=== PATIENT | female | born 2005 | race Two or more races ===

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

== ENCOUNTER 2024-12-27 14:40 | Emergency (ER) | payer MEDICAID ==
[~2024-12-27] VITALS: Ht 165.1 cm; Wt 51.3 kg
[2024-12-27 15:23] LABS: IMMATURE GRANULOCYTE ABSOLUTE 0.09 K/uL (0-1); NUCLEATED RED BLOOD CELLS 0.0 % (0.0-0.19); PLATELET COUNT (AUTO) 411 K/uL (130-400); RED BLOOD CELL COUNT(AUTO) 4.78 MIL/uL (4.00-5.50); RED CELL DISTRIBUTION WIDTH 13.8 % (11.0-15.5); WHITE BLOOD COUNT (AUTO) 13.3 K/uL (4.8-10.8)
[2024-12-27 15:37] LABS: CREATININE 0.9 mg/dL (0.5-1.0); GLOMERULAR FILTR. RATE CALC 94.0 mL/min (>90); GLUCOSE,RANDOM 102.0 mg/dL (70-105); SODIUM SERUM 143.0 mmol/L (136-145); UREA NITROGEN, BLOOD 16.0 mg/dL (7-18)
[2024-12-27] MEDS: 0.9%NACL 1000ML 1,000 ML IV ONE (15:39)
[2024-12-27 15:48] LABS: ASPARTATE AMINOTRANSFERASE 25.0 U/L (10-37); CREATINE KINASE, TOTAL 219.0 U/L (21-232); HCG,QUANTITATIVE 0.0 mIU/mL (0-5); TOTAL PROTEIN, SERUM 9.2 g/dL (6.0-8.3)
--- NOTE | 2024-12-27 15:50 | ERN ---
General Chief Complaint: Abdominal Pain Stated Complaint: ABDOMINAL PAIN Time Seen by MD: 14:45 Source: patient, family History of Present Illness Initial Comments Patient is a 19-year-old female coming in complaining of abdominal pain. Per patient the pain has been ongoing all day today. She states that the pain is present in the epigastric and right upper quadrant area. No fever no chills. Patient is a also complaining of nauseousness and vomiting on several occasions Allergies: Coded Allergies: No Known Drug Allergies (Unverified Allergy, Unknown, 12/27/24) Past Medical History Past Medical History: No Pertinent History Past Surgical History: None ROS Dictation CONSTITUTIONAL: No chills, no fever, no weakness, no diaphoresis, no malaise. HEAD/FACE: No signs of trauma. EENT: No eye pain, no blurred vision, no tearing, no double vision, no ear pain, no ear discharge, no nose pain, no nasal congestion, no throat pain, no throat swelling, no mouth pain. RESPIRATORY: No cough, no orthopnea, no SOB, no stridor, no wheezing. CARDIOVASCULAR: No chest pain, no edema, no palpitations, no syncope. GASTROINTESTINAL/ABDOMINAL: abdominal pain, no constipation, no diarrhea, no nausea, no vomiting. GENITOURINARY: No abnormal discharge, no dysuria, no frequent urination, no hematuria. No complaints of pain in the genitals. MUSCULOSKELETAL: No back pain, no gout, no joint pain, no joint swelling, no muscle pain, no muscle stiffness, no neck pain. INTEGUMENTARY: No change in color, no change in hair/nails, no dryness, no lesion, no lumps, no rash. NEUROLOGICAL/PSYCH: No anxiety, not depressed, no emotional problem, no headache, no numbness, no pre-existing deficit, no history of seizures, no tremors, no weakness. HEMATOLOGIC/LYMPHATIC: Not anemic, no history of blood clots, no apparent bleeding, no bruising, glands not swollen. All Systems Negative, Except as Noted. Physical Exam Physical Exam Dictation VITAL SIGNS: Reviewed. GENERAL APPEARANCE: Alert, oriented x3, no acute distress, obese. HEAD AND FACE: Non-traumatic. EYES: PERRL, pink conjunctivas, eyelid no trauma, anterior chamber clear. EARS: Pinnas intact and no signs of trauma or erythema. Ear canals clear and no discharge. TMs no erythema. NOSE: No discharge, no bleeding. OROPHARYNX: Mouth normal, teeth no caries, tongue pink. Pharynx clear, no erythema. Tonsils no exudates, no abscesses noted. Mucous membrane moist. NECK: Supple, non-tender, no thyromegaly, no masses, no JVD, no bruits. BREAST: Deferred. CHEST: No tenderness, no crepitus, no paradoxical movement, no retractions. LUNGS: Clear, well-ventilated, symmetric, no rales, no wheezing, no rhonchi, no stridor, good breath sounds bilaterally. HEART: Regular rate, regular rhythm, no murmur, no gallops. VASCULAR: No peripheral edema. ABDOMEN: Soft, positive bowel sounds, nondistended, no guarding, epigastric pain reproducible on palpation, no rebound, no masses no hepatomegaly, no splenomegaly, no Snow's sign, no hernias. RECTAL: Deferred. GENITAL: Deferred. NEUROLOGICAL: Normal speech, gross motor function intact, gross sensory function intact. MUSCULOSKELETAL: Neck nontender, full range of motion, back nontender, full range of motion. EXTREMITIES: Nontender, full range of motion. SKIN: Color pink, dry, no turgor, no rash, no lacerations, no abrasions, no contusions. LYMPHATICS: Deferred. General Appearance: (-) other documentation Results Laboratory and Microbiology Lab and Micro Result Laboratory Tests Test 12/27/24 15:05 12/27/24 15:29 White Blood Count 13.3 K/uL (4.8-10.8) H Red Blood Count 4.78 MIL/uL (4.00-5.50) Hemoglobin 14.5 g/dL (12.0-16.0) Hematocrit 43.1 % (36-48) Mean Corpuscular Volume 90.2 fL (80-100) Mean Corpuscular Hemoglobin 30.3 pg (27.0-33.0) Mean Corpuscular Hemoglobin Concent 33.6 g/dL (32.0-36.0) Red Cell Distribution Width 13.8 % (11.0-15.5) Platelet Count 411 K/uL (130-400) H Mean Platelet Volume 10.1 fL (7.5-10.5) Immature Granulocyte % (Auto) 0.7 % (0-1) Neutrophils (%) (Auto) 91.3 % (40.0-77.0) H Lymphocytes (%) (Auto) 6.0 % (21.0-51.0) L Monocytes (%) (Auto) 1.2 % (3.0-13.0) L Eosinophils (%) (Auto) 0.0 % (0.0-8.0) Basophils (%) (Auto) 0.8 % (0.0-5.0) Neutrophils # (Auto) 12.2 K/uL (1.8-7.7) H Lymphocytes # (Auto) 0.8 K/uL (1.0-4.8) L Monocytes # (Auto) 0.2 K/uL (0.1-1.0) Eosinophils # (Auto) 0.00 K/uL (0.00-0.70) Basophils # (Auto) 0.11 K/uL (0.00-0.20) Absolute Immature Granulocyte (auto 0.09 K/uL (0-1) Nucleated Red Blood Cells 0.0 % (0.0-0.19) White Cell Morphology Comment See comments Sodium Level 143 mmol/L (136-145) Potassium Level 4.1 mmol/L (3.5-5.1) Chloride Level 104 mmol/L (101-111) Carbon Dioxide Level 26 mmol/L (21-32) Blood Urea Nitrogen 16 mg/dL (7-18) Creatinine 0.9 mg/dL (0.5-1.0) Glomerular Filtration Rate Calc 94 mL/min (>90) Random Glucose 102 mg/dL (70-105) Total Calcium 9.7 mg/dL (8.5-10.1) Total Bilirubin 0.3 mg/dL (0.2-1.0) Aspartate Amino Transf (AST/SGOT) 25 U/L (10-37) Alanine Aminotransferase (ALT/SGPT) 42 U/L (12-78) Alkaline Phosphatase 74 U/L (50-136) Total Creatine Kinase 219 U/L (21-232) Total Protein 9.2 g/dL (6.0-8.3) H Albumin 4.7 g/dL (3.5-5.0) Lipase 30 U/L (16-77) Human Chorionic Gonadotropin, Quant 0 mIU/mL (0-5) Urine Color YELLOW (YELLOW) Urine Appearance CLOUDY (CLEAR) H Urine pH 5.5 (5.0-8.0) Urine Specific [place] 1.028 (1.001-1.031) Urine Protein 20 mg/dL (NEGATIVE) H Urine Glucose (UA) NEGATIVE mg/dL (NEGATIVE) Urine Ketones 10 mg/dL (NEGATIVE) H Urine Occult Blood +- (TRACE) (NEGATIVE) H Urine Nitrate NEGATIVE (NEGATIVE) Urine Bilirubin NEGATIVE mg/dL (NEGATIVE) Urine Urobilinogen 0.2 mg/dL (0.2-1.0) Urine Leukocyte Esterase NEGATIVE Justo/uL Urine RBC 2-5 /HPF (0-1) H Urine WBC 6-10 /HPF (0-1) H Urine Squamous Epithelial Cells FEW /HPF (0-2) Urine Other Crystals (Auto) 10 /HPF (None Seen) Urine Amorphous Crystals (Auto) RARE /LPF (None Seen) Urine Bacteria RARE /HPF (None Seen) Urine Other Casts 1 /LPF (None Seen) Urine Opiates Screen NEGATIVE (NEGATIVE) Urine Barbiturates Screen NEGATIVE (NEGATIVE) Urine Phencyclidine Screen NEGATIVE (NEGATIVE) Urine Amphetamines Screen POSITIVE (NEGATIVE) H Urine Benzodiazepines Screen NEGATIVE (NEGATIVE) Urine Cocaine Screen NEGATIVE (NEGATIVE) Urine Marijuana (THC) Screen POSITIVE (NEGATIVE) H Labs Reviewed?: Yes EKG/XRAY/US/CT/MRI X-RAY Comment CHEST X-RAY-NAD MDM MDM: Differential diagnosis: POLYSUBSTANCE ABUSE, GASTROENTERITIS, GASTRITIS Rationale: Tests considered and ordered secondary to shared decision making include: Previous outside records reviewed: Old ER visits. Risk of complication and/or morbidity or mortality of patient management: None Medications-Per medication reconciliation Need for hospitalization: Patient does not meet criteria for hospitalization. Need for emergency major/minor surgery: No PATIENT IS A 19-YEAR-OLD FEMALE COMING IN COMPLAINING OF ABDOMINAL PAIN AND NAUSEA AND VOMITING. LABORATORY WORKUP POSITIVE FOR POLYSUBSTANCE. PATIENT ALSO STATES THAT SHE HAD WAS VOMITING AND HAS SOME THROAT DISCOMFORT. EAT X-RAY WAS PERFORMED TO RULE OUT ANY TRAUMA. NO ACUTE FINDINGS WERE PRESENT. PATIENT WAS GIVEN A GI COCKTAIL STATES HER SYMPTOMS HAVE IMPROVED. PATIENT WILL BE DISCHARGED IN STABLE CONDITION WITH A DIAGNOSIS OF POLYSUBSTANCE ABUSE AND GASTRITIS. ED Course Orders Procedure Category Date Status Time Cbc With Differential LAB 12/27/24 Complete 14:46 Comprehensive LAB 12/27/24 Complete Metabolic Panel 14:46 Hcg,Quantitative LAB 12/27/24 Complete 14:46 Urinalysis Profile LAB 12/27/24 Complete 14:46 0.9%Nacl 1000ml (Ns PHA 12/27/24 Complete 1000ml) 15:00 Ondansetron 4mg Inj PHA 12/27/24 Complete (Zofran 4mg Inj) 15:00 Pantoprazole 40mg Inj PHA 12/27/24 Complete (Protonix 40mg Inj 15:00 Creatine Kinase, Total LAB 12/27/24 Complete 14:46 Lipase LAB 12/27/24 Complete 14:46 Drug Screen Urine LAB 12/27/24 Complete 16:35 Culture Urine PARKER 12/27/24 In Process 16:43 Chest 1vw RAD 12/27/24 Logged 17:36 Lidocaine Hcl 2% PHA 12/27/24 In Process Viscous (Lidocaine Hcl 18:00 Mag/Alum/Simeth 30ml PHA 12/27/24 In Process (Maalox Plus 30ml) 18:00 Current Medications Medications (Trade) Dose Ordered Sig/Tona Route PRN Reason Start Time Stop Time Status Last Admin Dose Admin Al Hydroxide/Mg Hydroxide (MAALox PLUS 30ML) 30 ml ONCE ONCE PO 12/27/24 18:00 12/27/24 18:01 12/27/24 17:52 Lidocaine HCl (Lidocaine HCl 2% Viscous) 10 ml ONCE ONCE PO 12/27/24 18:00 12/27/24 18:01 12/27/24 17:52 Ondansetron HCl (zoFRAN 4MG INJ) 4 mg ONCE ONCE IVP 12/27/24 15:00 12/27/24 15:01 DC 12/27/24 15:39 Pantoprazole Sodium (PROTonix 40MG INJ) 40 mg ONCE ONCE IVP 12/27/24 15:00 12/27/24 15:01 DC 12/27/24 15:39 Sodium Chloride 1,000 ml @ 0 mls/hr ONCE ONCE IV 12/27/24 15:00 12/27/24 15:01 DC 12/27/24 15:39 Vital Signs Date Time Temp Pulse Resp B/P (MAP) Pulse Ox O2 Delivery O2 Flow Rate FiO2 12/27/24 14:44 98.4 88 16 111/69 99 Room Air* 0 21 12/27/24 14:42 98.4 88 16 111/69 99 0 DX & DISP Disposition: Discharge Departure Impression: Primary Impression: Polysubstance abuse Additional Impression: Gastroenteritis Condition: Stable Scripts Pantoprazole Sodium (Protonix) 40 Mg Ectab 1 TAB PO DAILY for 30 Days, #30 TAB 0 Refills Prov: ZULAY CHRISTIE MD 12/27/24 Additional Instructions: FOLLOW-UP WITH PRIMARY CARE PROVIDER IN 1 TO 2 DAYS. TAKE MEDICATIONS DIRECTED HERE IN THE EMERGENCY ROOM. OKAY TO CONTINUE HOME MEDICATIONS UNLESS OTHERWISE DISCUSSED DURING YOUR VISIT IN THE EMERGENCY ROOM TODAY. RETURN TO YOUR NEAREST EMERGENCY ROOM IF SYMPTOMS WORSEN OR IF THERE IS NO IMPROVEMENT. CALL 911 IF YOU NEED IMMEDIATE ASSISTANCE. TAKE TYLENOL [id number] NEEDED AND IF NO CONTRAINDICATIONS ARE PRESENT. INCREASE ORAL HYDRATION. A WOUND CULTURE OR URINE CULTURE WAS ORDERED HERE IN THE EMERGENCY ROOM DEPARTMENT PLEASE FOLLOW-UP WITH PRIMARY CARE PROVIDER AND ADVISE THEM TO GET REPORTS FROM OUR FACILITY. IF YOU HAD ANY CHARITO WRAP/SPLINTS THAT WERE APPLIED HERE, PLEASE DO NOT REMOVE THEM UNTIL YOU SEE YOUR PRIMARY CARE OR SPECIALTY. REFERRALS: Referrals: SARA WOODY MD (PCP) Time of Disposition: 18:00 ZULAY CHRISTIE MD Dec 27, 2024 15:50
[2024-12-27 16:23] LABS: ADD UA MICROSCOPIC YES; APPEARANCE,URINE CLOUDY (CLEAR); GLUCOSE, URINE (UA) NEGATIVE (NEGATIVE); LEUKOCYTE ESTERASE ,URINE NEGATIVE Leu/uL (NEGATIVE); NITRATE,URINE NEGATIVE (NEGATIVE); OCCULT BLOOD,URINE +- (TRACE) (NEGATIVE)
[2024-12-27 16:26] LABS: OTHER CASTS, URINE 1 /LPF (None Seen); SQUAMOUS EPITHELIAL CELL,UR FEW /HPF (0-2); UNCLASSIFIED CRYSTAL 10 /HPF (None Seen)
[2024-12-27 16:48] LABS: AMPHET/METH SCREEN,URINE POSITIVE (NEGATIVE); BARBITURATE SCREEN, URINE NEGATIVE (NEGATIVE); CANNABINOID SCREEN,URINE POSITIVE (NEGATIVE); COCAINE SCREEN,URINE NEGATIVE (NEGATIVE)
[2024-12-27] MEDS: MAG/ALUM/SIMETH 30 ML UDCUP PO ONE (17:52)
[2024-12-27] MEDS: LIDOCAINE HCL 2% VISCOUS 15 ML UDCUP PO ONE (17:52)
[2024-12-27 18:00] VITALS: BP 112/66; PULSE 84; RESP 16; TEMP 98.5; O2SAT 99
[2024-12-27] MEDS ORDERED: PANT40TA55 PO (18:00)
--- NOTE | 2024-12-27 18:37 | HMCIMG ---
EXAM: CR Chest, 1 View. CLINICAL HISTORY: CP COMPARISON: None provided. FINDINGS: LUNGS: The lungs show no infiltrate or other acute finding. PLEURAL SPACES: No pleural effusion or pneumothorax. MEDIASTINUM: Cardiac size and mediastinal contours within normal limits. BONES: No aggressive appearing osseous lesion seen. IMPRESSION: No acute cardiopulmonary pathology is evident. /[place]
== END 2024-12-27 18:14 | disposition home or self-care (01) ==
LOC: EDH 14:40
DX: F19.10 Other psychoactive substance abuse, uncomplicated (principal); K52.9 Noninfective gastroenteritis and colitis, unspecified; R10.2 Pelvic and perineal pain
CPT/HCPCS: 99284; 96374; 71045; 96361; 96375; 82550; 80053; 80305; 84702; 83690; 85025; 87086; 36415; 81001; J2405; J2470